=== PATIENT | male | born 1980 | race Caucasian/White ===

== ENCOUNTER 2016-05-05 22:05 | Emergency (ER) | payer SELFPAY ==
[2016-05-05 22:10] VITALS: RESP 18; TEMP 97.6
[2016-05-05] MEDS ORDERED: HYDROcodone/APAP 7.5-325MG 1 EACH TAB PO ONE (22:18)
--- NOTE | 2016-05-05 22:24 | ED ---
Fall HPI - General Chief Complaint: Fall Stated Complaint: fall Time Seen by Provider: 05/05/16 22:14 Source: patient, RN notes reviewed Mode of arrival: ambulatory Limitations: no limitations - History of Present Illness Initial Comments: This a 35-year-old male presents emergency Department chief complaints fall. Patient states that he was walking out of his door states that he slipped on the first step striking his low back, left arm region. Patient states that he does have an abrasion noted to his left forearm early states is up-to-date vaccinations. Patient states that he has left low back pain. Patient states that it's from his mid to left low in states he did have some pain at [place] his left leg though that has resolved. Patient denies any bowel bladder incontinence or retention. Patient denies abdominal pain including nausea vomiting. Patient has not taken anything for pain so far. He states her some bruising and swelling noted to his left low back region. - Related Data Home Medications Medication Instructions Recorded Confirmed Ibuprofen [Motrin] 200 - 400 mg PO Q6HR PRN 05/05/16 05/05/16 Previous Rx's Medication Instructions Recorded Cyclobenzaprine [Flexeril] 10 mg PO TID PRN #15 tab 05/05/16 HYDROcodone/APAP 7.5-325MG [[place] 1 tab PO Q6HR PRN #20 tab 05/05/16 7.5-325] Allergies Allergy/AdvReac Type Severity Reaction Status Date / Time No Known Allergies Allergy Verified 05/05/16 22:24 Review of Systems ROS Statement: Those systems with pertinent positive or pertinent negative responses have been documented in the HPI. ROS Other: All systems not noted in ROS Statement are negative. Past Medical History Past Medical History: Asthma History of Any Multi-Drug Resistant Organisms: None Reported Past Surgical History: No Surgical Hx Reported Past Psychological History: No Psychological Hx Reported Smoking Status: Current every day smoker Past Alcohol Use History: Occasional Past Drug Use History: None Reported General Exam Limitations: no limitations General appearance: alert, in no apparent distress Head exam: Present: atraumatic, normocephalic, normal inspection Respiratory exam: Present: normal lung sounds bilaterally. Absent: respiratory distress, wheezes, rales, rhonchi, stridor Cardiovascular Exam: Present: regular rate, normal rhythm, normal heart sounds. Absent: systolic murmur, diastolic murmur, rubs, gallop, clicks GI/Abdominal exam: Present: soft, normal bowel sounds. Absent: distended, tenderness, guarding, rebound, rigid Extremities exam: Present: other (Abrasion noted to left forearm though nontender, full range of motion of all extremities) Back exam: Present: full ROM, tenderness (Moderate tenderness left low back), paraspinal tenderness. Absent: normal inspection (swelling and ecchymosis noted to the left low back region), CVA tenderness (R), CVA tenderness (L), vertebral tenderness Neurological exam: Present: alert, oriented X3, CN II-XII intact Skin exam: Present: warm, dry, intact, normal color. Absent: rash Course Vital Signs 05/05/16 22:08 Temperature 97.6 F Pulse Rate 65 Respiratory 18 Rate Blood Pressure 139/81 O2 Sat by Pulse 98 Oximetry Medical Decision Making - Medical Decision Making 35-year-old male presented emergency from her some fall. Patient does have bruising, swelling to low back. Patient's x-ray show no acute fractures no hematuria noted. Patient we discharged with pain medication. Return parameters were discussed. - Lab Data Lab Results 05/05/16 Range/Units 22:54 Urine Color Yellow Urine Appearance Clear (Clear) Urine pH 5.5 (5.0-8.0) Ur Specific [place] 1.007 (1.001-1.035) Urine Protein Negative (Negative) Urine Glucose (UA) Negative (Negative) Urine Ketones Negative (Negative) Urine Blood Negative (Negative) Urine Nitrate Negative (Negative) Urine Bilirubin Negative (Negative) Urine Urobilinogen <2.0 (<2.0) mg/dL Ur Leukocyte Esterase Negative (Negative) Disposition Clinical Impression: Fall, Back pain, Multiple contusions Disposition: HOME SELF-CARE Condition: Stable Instructions: Back Pain (ED) Additional Instructions: Please return to the Emergency Department if symptoms worsen or any other concerns. Prescriptions: Cyclobenzaprine [Flexeril] 10 mg PO TID PRN #15 tab PRN Reason: Muscle Spasm HYDROcodone/APAP 7.5-325MG [[place] 7.5-325] 1 tab PO Q6HR PRN #20 tab PRN Reason: Pain Time of Disposition: 00:00
--- NOTE | 2016-05-05 22:57 | XR ---
EXAMINATION TYPE: XR thoracic spine 2V DATE OF EXAM: 05/05/2016 10:46 PM CLINICAL HISTORY: History of fall downstairs to moderate and complains of low back pain into left but tock TECHNIQUE: Frontal, lateral, and swimmer's view of thoracic spine are obtained. COMPARISON: None. FINDINGS: There is mild S-shaped scoliosis in the thoracic spine. Thoracic spine show satisfactory alignment without evidence of acute fracture or dislocation. Verteb ral body heights and disc space heights are preserved. Visualized ribs are unremarkable. IMPRESSION: No acute fracture or dislocation is seen in the thoracic spine.
[2016-05-05 23:01] LABS: Appearance,Urine Clear (Clear); Bilirubin,Urine Negative (Negative); Glucose,Urine (UA) Negative (Negative); Ketones,Urine Negative (Negative); Leukocyte Esterase,Urine Negative (Negative); Nitrite,Urine Negative (Negative); PH, Urine 5.5 (5.0-8.0); Protein,Urine Negative (Negative); Specific Gravity,Urine 1.007 (1.001-1.035); UA Billing (MACRO vs. MICRO) CHEM; Urobilinogen,Urine <2.0 mg/dL (<2.0)
--- NOTE | 2016-05-05 23:42 | XR ---
EXAMINATION TYPE: XR lumbosacral spine min 4V DATE OF EXAM: 05/05/2016 10:47 PM CLINICAL HISTORY: Patient fell down stairs tonight complains of low back pain. TECHNIQUE: Frontal, lateral, and oblique images of the lumbar spine are obtained. COMPARISON: None FINDINGS: There are 5 lumbar type vertebral bodies identified. The lumbar spine shows satisfactory alignment w ithout evidence of acute fracture or dislocation. Vertebral body heights and disk space heights are w ithin normal limits. The oblique images appear within normal limits. The overlying soft tissue elisabeth ears unremarkable. There is a exaggerated lordosis. IMPRESSION: No acute fracture or dislocation is seen in the lumbar spine.
[2016-05-06] MEDS ORDERED: CYCLOBENZAPRINE 10MG STARTER 3 TAB BTL PO STA
[2016-05-06 00:09] VITALS: BP 137/86; PULSE 88
== END 2016-05-06 00:11 | disposition home or self-care (01) ==
LOC: EC 22:05
DX: M54.5 Low back pain (principal); F17.200 Nicotine dependence, unspecified, uncomplicated; T14.8 Other injury of unspecified body region; W01.0XXA Fall on same level from slipping, tripping and stumbling without subsequent striking against object, initial encounter; Y93.01 Activity, walking, marching and hiking
CPT/HCPCS: 72070; 72110; 81003; 99284